=== PATIENT | female | born 1970 | race Caucasian/White ===

== ENCOUNTER 2017-01-27 03:00 | Emergency (ER) | payer OTHER | END 2017-01-27 04:30 | disposition home or self-care (01) | LOC: ERS 03:00 | DX: J02.9 Acute pharyngitis, unspecified (principal); I10 Essential (primary) hypertension; F31.9 Bipolar disorder, unspecified; F41.9 Anxiety disorder, unspecified; Z87.442 Personal history of urinary calculi; Z87.891 Personal history of nicotine dependence | CPT/HCPCS: 87081; 87430; 99283 ==

== ENCOUNTER 2017-04-01 22:40 | Emergency (ER) | payer OTHER ==
[2017-04-01] MEDS ORDERED: Ibuprofen 200 MG TAB ONE (23:15)
== END 2017-04-01 23:49 | disposition home or self-care (01) ==
LOC: ERS 22:40
DX: B34.9 Viral infection, unspecified (principal); G43.909 Migraine, unspecified, not intractable, without status migrainosus; I10 Essential (primary) hypertension; F41.9 Anxiety disorder, unspecified; F31.9 Bipolar disorder, unspecified; Z87.891 Personal history of nicotine dependence
CPT/HCPCS: 99283

== ENCOUNTER 2017-08-07 23:37 | Emergency (ER) | payer OTHER ==
[2017-08-08] MEDS ORDERED: Proparacaine 0.5% Opth 15 ML BOT ONE (00:04)
[2017-08-08] MEDS ORDERED: Fluorescein Opthalmic Strip ONE (00:04)
== END 2017-08-08 00:20 | disposition home or self-care (01) ==
LOC: ERS 23:37
DX: S05.01XA Injury of conjunctiva and corneal abrasion without foreign body, right eye, initial encounter (principal); G43.909 Migraine, unspecified, not intractable, without status migrainosus; I10 Essential (primary) hypertension; F31.9 Bipolar disorder, unspecified; F41.9 Anxiety disorder, unspecified; Z87.891 Personal history of nicotine dependence; X58.XXXA Exposure to other specified factors, initial encounter
CPT/HCPCS: 99283

== ENCOUNTER 2017-09-12 16:15 | Emergency (ER) | payer OTHER ==
--- NOTE | 2017-09-12 17:12 | RAD ---
LEFT KNEE FOUR VIEWS: Indication: Left knee pain with injury. FINDINGS: There is no fracture or dislocation. No significant arthropathy or joint capsular distention. IMPRESSION: No acute osseous abnormality left knee. POS: [facility]
--- NOTE | 2017-09-12 17:13 | RAD ---
LEFT ANKLE THREE VIEWS: Indication: Left ankle injury with pain. Comparison: 10-21-16 FINDINGS: Ankle mortise is intact. Soft tissues are unremarkable. No fracture or dislocation. There is a stable enthesophyte at the plantar aspect of the calcaneus. IMPRESSION: No acute osseous abnormality left ankle. POS: [facility]
== END 2017-09-12 18:26 | disposition home or self-care (01) ==
LOC: ERS 16:15
DX: M25.462 Effusion, left knee (principal); G43.909 Migraine, unspecified, not intractable, without status migrainosus; I10 Essential (primary) hypertension; F32.9 Major depressive disorder, single episode, unspecified; Z79.899 Other long term (current) drug therapy; Z87.891 Personal history of nicotine dependence

== ENCOUNTER 2018-11-30 19:22 | Emergency (ER) | payer OTHER, SELFPAY ==
[2018-11-30] MEDS ORDERED: Lidocaine 1% PF 5 ML VIAL ONE (20:24)
[2018-11-30] MEDS ORDERED: Bacitracin 1 PK ONE (20:43)
== END 2018-11-30 20:17 | disposition home or self-care (01) ==
LOC: ERS 19:22
DX: S61.212A Laceration without foreign body of right middle finger without damage to nail, initial encounter (principal); G43.909 Migraine, unspecified, not intractable, without status migrainosus; I10 Essential (primary) hypertension; F31.9 Bipolar disorder, unspecified; F41.9 Anxiety disorder, unspecified; W26.8XXA Contact with other sharp object(s), not elsewhere classified, initial encounter
CPT/HCPCS: 12001; J2001

== ENCOUNTER 2018-12-21 11:56 | Emergency (ER) | payer SELFPAY ==
[2018-12-21] MEDS ORDERED: Ketorolac Tromethamine 30 MG/ML VIAL ONE (13:32)
--- NOTE | 2018-12-21 13:48 | RAD ---
Radiograph right shoulder 3 views: DATE: 12/21/2018 HISTORY: 48-year-old female with right shoulder pain. FINDINGS: No fracture, subluxation, or dislocation. Tiny 1 or 2 mm calcification in the soft tissues very close to the lateral aspect of humeral head visualized on internal rotation image. No high-grade DJD glenohumeral joint. Mild DJD AC joint. IMPRESSION: 1. 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 The acute manifestation of this would be calcific tendinitis. 2. No fracture.
== END 2018-12-21 14:32 | disposition home or self-care (01) ==
LOC: ERS 11:56
DX: M19.011 Primary osteoarthritis, right shoulder (principal); M65.221 Calcific tendinitis, right upper arm; G43.909 Migraine, unspecified, not intractable, without status migrainosus; I10 Essential (primary) hypertension; F31.9 Bipolar disorder, unspecified; F32.9 Major depressive disorder, single episode, unspecified; F41.9 Anxiety disorder, unspecified; Z79.899 Other long term (current) drug therapy
CPT/HCPCS: 96372; J1885

== ENCOUNTER 2019-03-17 01:09 | Emergency (ER) | payer OTHER, SELFPAY ==
[2019-03-17 01:30] LABS: #Eosinphils 0.1 thou/uL (0.0-0.7); #Monocytes 0.9 thou/uL (0.11-0.59); #Neutrophils 3.7 thou/uL (1.40-6.50); %Basophils 0.3 % (0.0-1.0); %Eosinophils 0.9 % (0.0-10.0); %Lymphocytes 45.7 % (21.0-51.0); %Monocytes 10.8 % (0.0-10.0); %Neutrophils 42.3 % (42.0-75.0); Hemoglobin 13.9 g/dL (12.0-16.0); Mean Corpuscular HGB CONC 34.5 g/dL (32.0-36.0); Mean Corpuscular Volume 92.7 fL (78.0-98.0); Mean Platelet Volume 7.6 fL (7.4-10.4); Platelet Count 261 thou/uL (130-400); RBC Distribution Width 11.3 % (11.5-14.5); Red Blood Cell (RBC) Count 4.36 mill/uL (4.20-5.40); White Blood Cell (WBC) Count 8.8 thou/uL (4.8-10.8)
[2019-03-17 01:54] LABS: ALT (SGPT) 11 U/L (8-55); AST (SGOT) 14 U/L (5-34); Albumin 4.2 g/dL (3.5-5.0); Alkaline Phosphatase 78 U/L (40-110); Anion Gap 12 mmol/L (10-20); BUN (Urea Nitrogen) 6 mg/dL (7.0-18.7); Bilirubin, Total 0.3 mg/dL (0.2-1.2); Calc. Creatinine Clearance 0 mL/min (70-130); Carbon Dioxide 31 mmol/L (22-29); Chloride 102 mmol/L (98-107); Estimated GFR-MDRD 78; Globulin 2.9 g/dL (2.4-3.5); Glucose 74 mg/dL (70-105); Protein, Total 7.1 g/dL (6.0-8.3); Sodium 142 mmol/L (136-145)
[2019-03-17 01:56] LABS: Potassium 2.8 mmol/L (3.5-5.1)
[2019-03-17 02:16] LABS: Bacteria/HPF None Seen HPF (None Seen); Bilirubin Negative (Negative); Blood, Urine Negative (Negative); Clarity Clear (Clear); Glucose, Urine (Dipstick) Normal (Negative); Leukocyte 25 Leu/uL (Negative); Nitrite Negative (Negative); Protein, Urine (Dipstick) 30 mg/dL (Neg-Trace); RBC/HPF 0-3 HPF (0-3); WBC/HPF 0-3 HPF (0-3)
[2019-03-17] MEDS ORDERED: Potassium Chloride 20 MEQ TAB ONE (02:54)
== END 2019-03-17 03:55 | disposition home or self-care (01) ==
LOC: ERS 01:09
DX: R19.7 Diarrhea, unspecified (principal); I10 Essential (primary) hypertension; F41.9 Anxiety disorder, unspecified; F31.9 Bipolar disorder, unspecified; G43.909 Migraine, unspecified, not intractable, without status migrainosus; Z79.899 Other long term (current) drug therapy; Z87.442 Personal history of urinary calculi
CPT/HCPCS: 36415; 80053; 81003; 81015; 85025; 86850; 86900; 86901; 99283

== ENCOUNTER 2019-05-14 13:56 | Emergency (ER) | payer SELFPAY | END 2019-05-14 15:05 | disposition home or self-care (01) | LOC: ERS 13:56 | DX: J11.1 Influenza due to unidentified influenza virus with other respiratory manifestations (principal); I10 Essential (primary) hypertension; F31.9 Bipolar disorder, unspecified; F41.9 Anxiety disorder, unspecified; G43.909 Migraine, unspecified, not intractable, without status migrainosus; Z79.899 Other long term (current) drug therapy | CPT/HCPCS: 87804; 99283 ==

== ENCOUNTER 2019-05-18 15:40 | Emergency (ER) | payer SELFPAY ==
[2019-05-18] MEDS ORDERED: Ketorolac Tromethamine 30 MG/ML VIAL ONE (17:18)
== END 2019-05-18 17:37 | disposition home or self-care (01) ==
LOC: ERS 15:40
DX: M79.10 Myalgia, unspecified site (principal); R51 Headache; I10 Essential (primary) hypertension; F31.9 Bipolar disorder, unspecified; F41.9 Anxiety disorder, unspecified; Z79.899 Other long term (current) drug therapy
CPT/HCPCS: 96372; 99283; J1885